=== PATIENT | male | born 1975 | race African-American/Black ===

== ENCOUNTER 2018-03-22 11:55 | Emergency (ER) | payer SELFPAY ==
[~2018-03-22] VITALS: Ht 180.3 cm; Wt 86.4 kg
[2018-03-22 11:59] VITALS: BP 136/76; PULSE 83; TEMP 97.8
== END 2018-03-22 12:54 | disposition home or self-care (01) ==
LOC: COL.ER 11:55
DX: S61.217A Laceration without foreign body of left little finger without damage to nail, initial encounter (principal); Z23 Encounter for immunization; W26.8XXA Contact with other sharp object(s), not elsewhere classified, initial encounter